=== PATIENT | male | born 1965 | race Asian ===

== ENCOUNTER 2016-12-20 08:08 | Emergency (ER) | payer OTHER ==
[~2016-12-20] VITALS: Ht 182.9 cm; Wt 102.5 kg
[2016-12-20 09:23] VITALS: BP 118/83; TEMP 97.6
== END 2016-12-20 09:26 | disposition home or self-care (01) ==
LOC: ED 08:08
DX: S61.011A Laceration without foreign body of right thumb without damage to nail, initial encounter (principal); W45.8XXA Other foreign body or object entering through skin, initial encounter; Y92.512 Supermarket, store or market as the place of occurrence of the external cause
CPT/HCPCS: 90715; 99282

== ENCOUNTER 2017-04-21 22:02 | Emergency (ER) | payer OTHER ==
[~2017-04-21] VITALS: Ht 182.9 cm; Wt 102.1 kg
[2017-04-21 23:41] LABS: POTASSIUM 3.7 mmol/L (3.6-5.2); SODIUM 137 mmol/L (136-145)
[2017-04-21 23:47] LABS: PLATELET COUNT 217 K/uL (142-355)
[2017-04-22 00:26] VITALS: BP 144/90; TEMP 97.9
== END 2017-04-22 00:27 | disposition home or self-care (01) ==
LOC: ED 22:02
PROVIDERS: Emergency Medicine
DX: R10.9 Unspecified abdominal pain (principal); R07.81 Pleurodynia; Q85.00 Neurofibromatosis, unspecified
CPT/HCPCS: 36415; 80053; 81000; 82150; 82550; 83690; 84484; 85027; 93005; 99283

== ENCOUNTER 2019-02-13 10:54 | Outpatient (CLI) | payer OTHER | END 2019-02-13 20:18 | disposition home or self-care (01) | LOC: RESP 10:54 | DX: G56.02 Carpal tunnel syndrome, left upper limb (principal); G56.20 Lesion of ulnar nerve, unspecified upper limb | CPT/HCPCS: 95885; 95909 ==

== ENCOUNTER 2021-04-17 14:00 | Emergency (ER) | payer OTHER | END 2021-04-17 15:15 | disposition home or self-care (01) | LOC: ED 14:00 | DX: S90.112A Contusion of left great toe without damage to nail, initial encounter (principal); W22.8XXA Striking against or struck by other objects, initial encounter; Y92.89 Other specified places as the place of occurrence of the external cause | CPT/HCPCS: 99283 ==

== ENCOUNTER 2021-12-23 09:17 | Outpatient (CLI) | payer OTHER | END 2021-12-23 19:24 | disposition home or self-care (01) | LOC: CT 09:17 | PROVIDERS: ATTEND Specialist | DX: Q85.01 Neurofibromatosis, type 1 (principal) | CPT/HCPCS: 36415; 82565; 84520; Q9963 ==